=== PATIENT | male | born 1945 | race Caucasian/White ===

== ENCOUNTER 2018-09-08 16:03 | Outpatient (CLI) | payer MEDICARE, OTHER ==
--- NOTE | 2018-09-08 16:33 | RAD ---
EXAM: Two views chest PROVIDED CLINICAL HISTORY: Pneumonia. Cough since Wednesday. COMPARISON: None FINDINGS: Cardiac silhouette and pulmonary vasculature are within normal limits. Minimal linear atelectasis pr esent left lung base. Lungs are otherwise clear. Mild degenerative change seen in the spine. IMPRESSION: No acute cardiopulmonary process.
== END 2018-09-08 16:04 | disposition home or self-care (01) ==
LOC: BICRAD 16:03
PROVIDERS: ATTEND Allergy & Immunology
DX: J18.9 Pneumonia, unspecified organism (principal)
CPT/HCPCS: 71046